=== PATIENT | male | born 1985 | race Caucasian/White ===

== ENCOUNTER 2019-07-17 17:05 | Emergency (ER) | payer OTHER ==
[~2019-07-17] VITALS: Ht 180.3 cm; Wt 108.9 kg
[2019-07-17 17:10] VITALS: BP 134/77
--- NOTE | 2019-07-17 18:18 | NUR ---
TO CHAIR Alex
--- NOTE | 2019-07-17 18:30 | NUR ---
34 Y/O M PRESENTS TO ER C/O PREVIOUS INJURY LEFT WRIST. INJURY OCCURED 03/26/19. PER PT LEFT WRIST NEVER GOT BETTER. PT ABLE TO PERFORM ROM, BUT UNABLE TO LIFT HEAVY OBJECTS. PAIN LEVEL 9/10 WITH LIFTING. IBUPROFEN TAKEN THIS MORNING, WITH RELIEF. ALLERGIES: PEANUTS. MED HX: INGUINAL HERNIA 2006 AND APPENDECTOMY 2017. PA MADE AWARE OF PT STATUS.
--- NOTE | 2019-07-17 18:42 | NUR ---
APPLIED WRSIT SPLINT TO LEFT WRIST WITHOUT ANY ISSUES
[2019-07-17 18:57] VITALS: BP 134/77
--- NOTE | 2019-07-17 18:57 | NUR ---
Patient discharged with v/s stable. Written and verbal after care instructions given and explained. Pt encouraged to rest, apply ice and follow up with PCP. Patient alert, oriented and verbalized understanding of instructions. Ambulatory with steady gait. All questions addressed prior to discharge. ID band removed. Patient advised to follow up with PMD. Rx of ibuprofen 600mg was given. Patient educated on indication of medication including possible reaction and side effects. Opportunity to ask questions provided and answered.
== END 2019-07-17 18:57 | disposition home or self-care (01) ==
LOC: MED 17:05
DX: G89.29 Other chronic pain (principal); M25.532 Pain in left wrist
CPT/HCPCS: 99282; 99283